=== PATIENT | female | born 2005 | race Caucasian/White ===

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

== ENCOUNTER → 2023-08-13 09:22 | Outpatient (CLI) | payer MEDICAID, SELFPAY ==
[2023-08-13 11:45] LABS: HCG,Quantitative 73991 mIU/ml (0-5.42)
== END ==
PROVIDERS: PCP Nurse Practitioner Family; Visit Provider Obstetrics & Gynecology
DX: N92.6 Irregular menstruation, unspecified (principal)
CPT/HCPCS: 36415; 84144; 84702

== ENCOUNTER → 2023-08-21 16:58 | Outpatient (CLI) | payer MEDICAID, SELFPAY ==
[2023-08-26 08:40] LABS: Neisseria gonorrhoeae, NAA Negative (Negative)
== END ==
PROVIDERS: PCP Nurse Practitioner Family; Visit Provider Obstetrics & Gynecology
DX: Z34.91 Encounter for supervision of normal pregnancy, unspecified, first trimester (principal); Z3A.10 10 weeks gestation of pregnancy
CPT/HCPCS: 87491; 87591

== ENCOUNTER → 2023-08-24 11:11 | Outpatient (CLI) | payer MEDICAID, SELFPAY ==
[2023-08-24 11:33] LABS: Basophils % 0.2 % (0.1-2.0); Eosinophils # 0.1 K/mm3 (0.0-0.4); Eosinophils % 0.9 % (0.1-12.0); Hematocrit 35.7 % (37.0-47.0); Hemoglobin 11.9 g/dL (12.2-16.2); Lymphocytes # 1.4 K/mm3 (0.7-4.5); Mean Corpuscular HGB Conc 33.2 g/dL (31.8-35.4); Mean Corpuscular Hemoglobin 26.1 pg (27.0-31.2); Mean Corpuscular Volume 78.6 fl (81-99); Mean Platelet Volume 8.4 fl (7.4-10.4); Monocytes # 0.3 K/mm3 (0.1-1.0); Monocytes % 4.5 % (1.7-9.3); Neutrophils # 5.7 K/mm3 (1.8-7.8); Neutrophils % 75.4 % (37.0-80.0); Platelet Count 298 K/mm3 (142-424); Red Blood Count 4.54 M/mm3 (4.20-5.40); White Blood Count 7.6 K/mm3 (4.5-13.0)
[2023-08-25 13:45] LABS: Rubella Antibodies, IgG 0.95 index (Immune >0.99)
[2023-08-28 10:00] LABS: HIV Screen 4th Generation wRfx Non Reactive; Hepatitis B Surface Antigen Negative; Hepatitis C Antibody Non Reactive; Rapid Plasma Reagin Ab Titer Non Reactive
== END ==
PROVIDERS: PCP Nurse Practitioner Family; Visit Provider Obstetrics & Gynecology
DX: Z34.91 Encounter for supervision of normal pregnancy, unspecified, first trimester (principal); Z3A.10 10 weeks gestation of pregnancy
CPT/HCPCS: 36415; 85025; 86593; 86703; 86762; 86850; 87340; 87380; G0432

== ENCOUNTER → 2023-09-19 23:30 | Outpatient (CLI) | payer MEDICAID, SELFPAY | LOC: LAB.DROPOF 23:30 | PROVIDERS: PCP Nurse Practitioner Family; Visit Provider Obstetrics & Gynecology | DX: Z34.92 Encounter for supervision of normal pregnancy, unspecified, second trimester (principal); Z3A.15 15 weeks gestation of pregnancy; B96.1 Klebsiella pneumoniae [K. pneumoniae] as the cause of diseases classified elsewhere | CPT/HCPCS: 87086 ==

== ENCOUNTER 2023-10-24 09:39 | Outpatient (CLI) | payer MEDICAID, SELFPAY ==
--- NOTE | 2023-10-24 09:40 | US_ITS ---
PROCEDURE: US OB /MATERNAL DETAIL CLINICAL INDICATION: 20 wk+ Anatomy Scan US OB Complete COMPARISON: No exams were available for comparison FINDINGS: Transabdominal sonographic images of the pelvis were obtained. From her established due date she is 20 weeks 0 days. Single viable intrauterine gestation. Cephalic position. Placenta: Anteriorplacenta grade 1. There is an average amount of fluid. The cervix appears satisfactory. Closed and measuring 4.0 cm in length. Complete survey performed and was unremarkable on the submitted images as in PACS. No discrete anomalies identified on survey imaging by technologist. Active fetus. Three-vessel cord with satisfactory umbilical cord insertion. 4- chamber heart noted. Situs, aortic arch, LVOT, three-vessel view appear normal. Survey of brain & ventricles Unremarkable. Cerebellum, thalamus, choroid plexus, cisterna magna appear normal. Face and neck survey unremarkable. Profile, nasion, lips and nose appeared normal. Diaphragm and chest views unremarkable. Abdomen: Both kidneys noted and unremarkable. Stomach and bladder noted and satisfactory. Spine: Survey of the spine satisfactory with no anomalies identified nor imaged. Cervical, thoracic, lower spine appear normal. Both arms and legs noted. Amniotic Fluid: Adequate. Measurements: Average ultrasound age 19weeks 5days. Estimated due date by ultrasound age 0603/14/2024. Estimated weight 308g BPD = 19weeks 3days HC = 19weeks 6days AC = 19weeks 3days FL = 20weeks 1day Growth Percentile= 29 Heart Rate = 142bpm Cerebellum = 19weeks 1day Humerus = 20weeks 1day HC/AC is 1.24 FL/BPD is 0.73 FL/AC is 0.23 IMPRESSION: 1. Viable fetus in the cephalic presentation with an anterior placenta grade 1. 2. The fluid is within normal limits. 3. Anatomical scan appears normal. 4. biometry is consistent with the dates. Dictated by: Gilberto Luque MD 10/24/2023 13:03 Gilberto Luque MD in OV 10/24/2023 13:03
== END 2023-10-24 23:59 ==
LOC: RAD 09:40
PROVIDERS: PCP Nurse Practitioner Family; Visit Provider Obstetrics & Gynecology
DX: Z36.3 Encounter for antenatal screening for malformations (principal); Z3A.20 20 weeks gestation of pregnancy
CPT/HCPCS: 76811

== ENCOUNTER 2023-12-05 08:04 | Outpatient (CLI) | payer MEDICAID, SELFPAY ==
[2023-12-05 08:30] LABS: Basophils # 0.1 K/mm3 (0-0.2); Basophils % 0.8 % (0.1-2.0); Eosinophils # 0.1 K/mm3 (0.0-0.4); Eosinophils % 0.8 % (0.1-12.0); Hematocrit 31.5 % (37.0-47.0); Hemoglobin 10.2 g/dL (12.2-16.2); Lymphocytes # 1.9 K/mm3 (0.7-4.5); Mean Corpuscular HGB Conc 32.4 g/dL (31.8-35.4); Mean Corpuscular Hemoglobin 25.9 pg (27.0-31.2); Mean Corpuscular Volume 80.2 fl (81-99); Mean Platelet Volume 8.4 fl (7.4-10.4); Monocytes # 0.4 K/mm3 (0.1-1.0); Monocytes % 5.4 % (1.7-9.3); Neutrophils # 4.7 K/mm3 (1.8-7.8); Platelet Count 292 K/mm3 (142-424); Red Blood Count 3.93 M/mm3 (4.20-5.40); Red Cell Distribution Width 14.9 % (11.5-17.5); White Blood Count 7.1 K/mm3 (4.5-13.0)
[2023-12-05 08:53] LABS: Glucose,Fasting 87 mg/dl (74-100)
[2023-12-05 09:53] LABS: Glucose 1 Hour 110 mg/dL (74-100)
== END 2023-12-05 23:59 ==
LOC: LAB 08:04
PROVIDERS: Visit Provider Obstetrics & Gynecology
DX: O26.892 Other specified pregnancy related conditions, second trimester (principal); Z3A.26 26 weeks gestation of pregnancy
CPT/HCPCS: 36415; 82951; 85025

== ENCOUNTER 2024-01-16 14:05 | Outpatient (CLI) | payer MEDICAID, SELFPAY ==
--- NOTE | 2024-01-16 14:11 | US_ITS ---
PROCEDURE: US OB FOLLOW UP CLINICAL INDICATION: growth/ sga COMPARISON: No exams were available for comparison FINDINGS: Transabdominal sonographic images of the uterus were obtained. From her established due date she is 32weeks 0 days. The following parameters are obtained: Viable Fetus in the cephalic presentation with and anterior placenta grade 2. Average ultrasound age is 32weeks 1day Estimated weight 1,897g, 4 lb 3 oz. The cervix measures 2.7 cm in length. Measurements: heart Rate = 144bpm BPD = 31weeks 5days, 32 percentile HC = 32weeks 3days, 22 percentile AC = 32weeks 2days, 56 percentile FL = 31weeks 6days, 32 percentile HC/AC is 1.04 FL/BPD is 0.78 FL/AC is 0.22 41 percentile Amniotic fluid index: 9.73cm, MVP 3.13 cm. Doppler evaluation of the umbilical artery: SD ratio: 3.29-3.44 Resistive index: 0.7 No obvious anomalies evident.Kidneys, profile, stomach, bladder, four-chamber heart, three-vessel cord appear normal. IMPRESSION: 1. Viable fetus in the cephalic presentation with an anterior placenta grade 2. 2. The fluid is within normal limits with an amniotic fluid index of 9.73 cm, MVP 3.13 cm. 3. There has been good interval growth with the fetus currently 41st percentile. 4. SD ratio is normal at 3.2 9-3.44. 5. Limited anatomical scan appears normal. Dictated by: Gilberto Luque MD 01/16/2024 16:29 Gilberto Luque MD in OV 01/16/2024 16:29
== END 2024-01-16 23:59 | disposition home or self-care (01) ==
LOC: RAD 14:06
PROVIDERS: PCP Nurse Practitioner Family; Visit Provider Obstetrics & Gynecology
DX: O26.893 Other specified pregnancy related conditions, third trimester (principal); O36.5990 Maternal care for other known or suspected poor fetal growth, unspecified trimester, not applicable or unspecified; O28.8 Other abnormal findings on antenatal screening of mother; Z3A.32 32 weeks gestation of pregnancy
CPT/HCPCS: 76816; 76820

== ENCOUNTER 2024-02-12 18:00 | Outpatient (CLI) | payer MEDICAID, SELFPAY | END 2024-02-12 23:59 | disposition home or self-care (01) | LOC: LAB.DROPOF 02-13 09:21 | PROVIDERS: PCP Obstetrics & Gynecology; Visit Provider Obstetrics & Gynecology | DX: O26.893 Other specified pregnancy related conditions, third trimester (principal); Z3A.35 35 weeks gestation of pregnancy; B95.1 Streptococcus, group B, as the cause of diseases classified elsewhere | CPT/HCPCS: 86403; 87186 ==

== ENCOUNTER 2024-03-05 19:44 | Inpatient (IN) | payer MEDICAID, SELFPAY ==
[2024-03-05 20:46] VITALS: BMI 25.2
[2024-03-05 21:12] VITALS: BP 126/80; PULSE 90; RESP 18; TEMP 36.8; O2SAT 99; BMI 25.4
[2024-03-05 21:17] LABS: Microscopic, Urine URINE MICROSCOPIC (MICROSCOPIC)
[2024-03-05 21:17] LABS: Basophils # 0.1 K/mm3 (0-0.2); Basophils % 0.6 % (0.1-2.0); Eosinophils % 0.4 % (0.1-12.0); Hematocrit 27.6 % (37.0-47.0); Hemoglobin 8.6 g/dL (12.2-16.2); Lymphocytes # 1.7 K/mm3 (0.7-4.5); Lymphocytes % 19.7 % (10-50); Mean Corpuscular HGB Conc 31.2 g/dL (31.8-35.4); Mean Corpuscular Hemoglobin 20.8 pg (27.0-31.2); Mean Corpuscular Volume 66.7 fl (81-99); Mean Platelet Volume 9.9 fl (7.4-10.4); Monocytes # 0.4 K/mm3 (0.1-1.0); Monocytes % 4.6 % (1.7-9.3); Neutrophils # 6.5 K/mm3 (1.8-7.8); Neutrophils % 74.7 % (37.0-80.0); Platelet Count 310 K/mm3 (142-424); Red Blood Count 4.14 M/mm3 (4.20-5.40); Red Cell Distribution Width 18.2 % (11.5-17.5); White Blood Count 8.7 K/mm3 (4.5-13.0)
[2024-03-05 21:36] LABS: Appearance,Urine CLEAR (Clear); Bilirubin,Urine Negative (Negative); Blood, Urine Negative (Negative); Color,Urine YELLOW (Yellow); Glucose,Urine (UA) Negative (Negative); Ketones,Urine Negative (Negative); Leukocyte Esterase,Urine TRACE (Negative); Nitrate,Urine Negative (Negative); PH,Urine 6.5 (5.0-8.5); Protein,Urine Negative (Negative)
[2024-03-05 21:49] LABS: Benzodiazepines Screen,Urine Negative ng/ml (<200)
[2024-03-05 21:50] LABS: Amphetamine/Metha Screen,Urine Negative ng/ml (<1000); Barbiturates Screen,Urine Negative ng/ml (<200)
[2024-03-05 21:51] LABS: Cannabinoid Screen,Urine Negative ng/ml (<50)
[2024-03-05 21:52] LABS: Bacteria,Urine Trace /lpf; Cocaine Screen,Urine Negative ng/ml (<300); Methadone Screen,Urine Negative ng/ml (<300); WBC,Urine Occasional #/hpf (0-3)
[2024-03-05 21:53] LABS: Opiate Screen,Urine Negative ng/ml (<300)
[2024-03-05 21:54] LABS: Phencyclidine Screen,Urine Negative ng/ml (<25)
[2024-03-05] MEDS: miSOPROStol 100MCG TABLET 50 MCG PO (22:15)
[2024-03-06] MEDS: DEXTROSE 5%-LACTATED RINGERS 1,000 ML 125 ML IV ×2 (04:32→06:00)
[2024-03-06] MEDS: LACTATED RINGERS 1000ML 1,000 ML 250 ML IV ×2 (04:32→09:30)
[2024-03-06] MEDS: OXYTOCIN/RINGERS LACTATE 30 UNITS/500 ML BAG IV ×2 (04:32→10:00)
[2024-03-06] MEDS: VANCOMYCIN HCL 1,000 MG in 0.9 % SODIUM CHLORIDE 250 ML 125 MG IV (04:56)
[2024-03-06 07:39] VITALS: BP 125/94; PULSE 93; RESP 18; TEMP 36.9; O2SAT 98
[2024-03-06 08:13] LABS: Chloride 109 mmol/L (98-107); Sodium 138 mmol/L (136-145)
[2024-03-06 08:14] LABS: Potassium 3.6 mmoL/L (3.5-5.1)
[2024-03-06 08:16] LABS: Blood Urea Nitrogen 5 mg/dl (7-17); Creatinine Clearance Estimated 148 mL/min (50-200); Estimated Glomerular Filt Rate 127 ml/min (>60); GFR (African American) 154 ML/MIN (>60)
[2024-03-06 08:17] LABS: Anion Gap 10.6 mEq/L (5-15); Calcium 8.8 mg/dl (8.4-10.2); Carbon Dioxide 22 mmol/L (22.0-30.0); Glucose 92 mg/dl (74-100)
--- NOTE | 2024-03-06 08:25 | P.HP_ITS ---
OB - H&P: HPI Antepartum History of Present Illness Chief complaint: Scheduled induction of labor History of present illness: Ms Yi Plasencia is a 18 yo at 39w1d who present to [facility] L&D for scheduled elective induction of labor. She has had good care. History of HSV genital. She has been taking Valtrex prophylacticly since 36 weeks. Baby is very active. GBS positive. History of Present Criteria for establishing EDC:: based on 1st trimester US only care: good care Ultrasounds: normal mid trimester US Obstetrical complications: none Medical complications: none Labs Blood type: A (+) positive Rubella: nonimmune RPR/VDRL: nonreactive GBS status: positive HBsAG: negative PFSH PFS Disclaimer: The information contained in this section may have been updated after the patient was seen, as this information can be updated by other users. Medical History (Updated 03/06/24 @ 09:40 by Trisha Brown DO) Encounter for elective induction of labor 39 weeks gestation of GBS (group B Streptococcus carrier), +RV culture, currently Vaginitis affecting , antepartum Uterine size date discrepancy, antepartum Screening for genetic disease carrier status Rubella non-immune status, antepartum Herpes simplex Surgical History No significant past surgical history Family History Unknown Cancer Breast Other Hypertension Social History (Updated 03/06/24 @ 05:10 by Jade Sy RN) Smoking Status: Former smoker tobacco type: e-cigarettes alcohol intake: never substance use type: denies use current occupational status: unemployed Travel in the last 8 weeks: None household members: family housing: house Review of Systems Review of Systems Review of systems:: pertinent systems reviewed and negative unless documented below Meds Home Medications and Allergies Home Medications Medication Instructions Recorded Confirmed Type ferrous sulfate 325 mg (65 mg 325 mg PO DAILY #30 tabs 12/06/23 03/06/24 Rx iron) tablet vit no.133-ferrous 1 tab PO DAILY 01/30/24 03/06/24 History fumarate 28 mg-folic acid 800 mcg tablet () valacyclovir 500 mg tablet 500 mg PO BID #60 tabs 01/30/24 03/06/24 Rx (Valtrex) New Prescriptions to Start Prescriptions: Allergies Allergy/AdvReac Type Severity Reaction Status Date / Time amoxicillin [From AUGMENTIN] Allergy Unknown Verified 02/28/24 13:38 clavulanic acid Allergy Unknown Verified 02/28/24 13:38 [From AUGMENTIN] diphenhydramine Allergy Unknown Verified 02/28/24 13:38 [From BENADRYL] acetaminophen Allergy Verified 02/28/24 13:38 [From Tylenol-Codeine #3] codeine Allergy Verified 02/28/24 13:38 [From Tylenol-Codeine #3] OB - H&P: Exam Physical Exam Vital signs: Temp Pulse Resp BP Pulse Ox O2 Del Method 98.3 F 90 18 126/80 99 Room Air 03/05/24 21:12 03/05/24 21:12 03/05/24 21:12 03/05/24 21:12 03/05/24 21:12 03/05/24 21:12 Constitutional no acute distress and cooperative Routine HEENT Exam Head: Present normocephalic and atraumatic Eye: Absent conjunctivae pink ENT: Present mucous membranes moist Routine Neck Exam Present full ROM Routine Respiratory Exam Present CTA bilaterally and normal respiratory effort Routine Cardiovascular Exam Present RRR Routine Abdominal Exam Present soft (Gravid); Absent tenderness Routine Rectal Exam Patient deferred: visual exam Routine Exam External: Present normal urethra appearance; Absent erythema, tenderness, lesions or lacerations Routine Extremities Exam Present full ROM; Absent edema or calf tenderness Routine Neurological Exam Present alert, moving all extremities and normal speech Routine Psychiatric Exam Present normal affect and cooperative Detailed Labor and Delivery Exam Dilation (cm): 2 Effacement (%): 75 Cervix position: anterior station: -1 Consistency: soft Membranes: artificially ruptured (amniotomy performed at 0759 with amnihook without difficulty) Amniotic fluid: clear Baseline heart rate: 135 monitor accelerations: Present monitor decelerations: None detention variability: Moderate (11-25) Contraction frequency (min): 3 Tachysystole: No OB - Results Labs Labs: Short CBC 03/05/24 Range/Units 21:01 WBC 8.7 (4.5-13.0) K/mm3 Hgb 8.6 L (12.2-16.2) g/dL Hct 27.6 L (37.0-47.0) % Plt Count 310 (142-424) K/mm3 Urine 03/05/24 Range/Units 20:00 Urine Color Yellow (Yellow) Urine Appearance Clear (Clear) Urine pH 6.5 (5.0-8.5) Ur Specific [place] 1.010 (1.005-1.030) Urine Protein Negative (Negative) Urine Glucose (UA) Negative (Negative) OB - A/P Antepartum (1) 39 weeks gestation of : Status: Acute (2) Encounter for elective induction of labor: Status: Acute (3) GBS (group B Streptococcus carrier), +RV culture, currently : Status: Acute (4) Herpes simplex: Status: Acute Additional Plan Planning to breastfeed?: Yes Plan: induction Additional Information:: Admit to [facility] L&D for elective induction of labor. Induction of labor with Cytotec followed by Pitocin GBS positive, + penicillin allergy. No sensitivies resulted. Will proceed with vancomycin for GBS prophylaxis Close monitoring Anticipate
--- NOTE | 2024-03-06 09:03 | EXP.PHA.CONS ---
Pharmacy Consult Date: 03/06/24 Time: 09:03 Referring provider: DR. BROWN Reason for Consult:: VANCOMYCIN DOSING Allergies Allergy/AdvReac Type Severity Reaction Status Date / Time amoxicillin [From AUGMENTIN] Allergy Unknown Verified 02/28/24 13:38 clavulanic acid Allergy Unknown Verified 02/28/24 13:38 [From AUGMENTIN] diphenhydramine Allergy Unknown Verified 02/28/24 13:38 [From BENADRYL] acetaminophen Allergy Verified 02/28/24 13:38 [From Tylenol-Codeine #3] codeine Allergy Verified 02/28/24 13:38 [From Tylenol-Codeine #3] Home Medications Medication Instructions Recorded Confirmed Type ferrous sulfate 325 mg (65 mg 325 mg PO DAILY #30 tabs 12/06/23 03/06/24 Rx iron) tablet vit no.133-ferrous 1 tab PO DAILY 01/30/24 03/06/24 History fumarate 28 mg-folic acid 800 mcg tablet () valacyclovir 500 mg tablet 500 mg PO BID #60 tabs 01/30/24 03/06/24 Rx (Valtrex) New Prescriptions to Start Prescriptions: Height: 1.57 m Weight: 62.596 kg Laboratory Results:: Laboratory Results - last 24 hr 03/05/24 20:00: Urine Color Yellow, Urine Appearance Clear, Urine pH 6.5, Ur Specific [place] 1.010, Urine Protein Negative, Urine Glucose (UA) Negative, Urine Ketones Negative, Urine Blood Negative, Urine Nitrate Negative, Urine Bilirubin Negative, Urine Urobilinogen 1.0, Ur Leukocyte Esterase Trace, Urine RBC None, Urine WBC Occasional, Ur Squamous Epith Cells 3-5, Urine Bacteria Trace, Urine Opiates Screen Negative, Urine Methadone Screen Negative, Ur Barbituates Screen Negative, Ur Phencyclidine Scrn Negative, Ur Amphetamines Screen Negative, U Benzodiazepines Scrn Negative, Urine Cocaine Screen Negative, U Marijuana (THC) Screen Negative 03/05/24 21:01: WBC 8.7, RBC 4.14 L, Hgb 8.6 L, Hct 27.6 L, MCV 66.7 L, MCH 20.8 L, MCHC 31.2 L, RDW 18.2 H, Plt Count 310, MPV 9.9, Neut % (Auto) 74.7, Lymph % (Auto) 19.7, [place] % (Auto) 4.6, Eos % (Auto) 0.4, Baso % (Auto) 0.6, Neut # (Auto) 6.5, Lymph # (Auto) 1.7, [place] # (Auto) 0.4, Eos # (Auto) 0.0, Baso # (Auto) 0.1, Blood Type A Positive, Antibody Screen Negative 03/06/24 07:54: Sodium 138, Potassium 3.6, Chloride 109 H, Carbon Dioxide 22, Anion Gap 10.6, BUN 5 L, Creatinine 0.60, Estimated Creat Clear 148, Estimated GFR 127, Est GFR ( Amer) 154, Glucose 92, Calcium 8.8 Medical History: Medical History (Updated 02/28/24 @ 14:12 by Trisha Brown DO) GBS (group B Streptococcus carrier), +RV culture, currently Vaginitis affecting , antepartum Uterine size date discrepancy, antepartum Screening for genetic disease carrier status Rubella non-immune status, antepartum Herpes simplex Assessment and Plan Assessment and plan all Dx Assessment and Plan for all problems:: Pharmacokinetic dosing service Objective: Patient: Floor: Age: 18 yo Serum creatinine: 0.60 mg/dL Height: 61.8 Inches Weight (kg): 62.6 Assessment: IBW (kg): 49.64 Dosing wt(kg): 62.6 Estimated Creatinine clearance (ml/min): 117.2 CRCL method: Cockcroft and Gault using ibw(default). Drug selected: Vancomycin Loading dose (mg): Vd (liters): 50.1 (factor used: 0.8 L/kg) Dave (hr-1): 0.102 Half life (hrs): 6.80 CLvanco=?? 5.110 L/hr Recommended dose: 1250 mg Interval: 12 hrs Infusion time (hrs): 2.0 Predicted peak (mcg/mL): 32.0 Predicted trough (mcg/mL): 11.54 Total body weight is being used for vancomycin dosing. Recommendations: Give Vancomycin 1250 mg q 12 hrs with an expected Cpeak of 32.0 mcg/ml and an expected Ctrough of 11.54 mcg/ml AUC 0-24 /MARCY Data: MARCY 0.5 mcg/mL:?? AUC/MARCY:? 978.5 MARCY 1.0 mcg/mL:?? AUC/MARCY:? 489.2 --------- MARCY 1.5 mcg/mL:?? AUC/MARCY:? 326.2 MARCY 2.0 mcg/mL:?? AUC/MARCY:? 244.6 Thank you for the consult, will continue to follow. -GILMAR JAY, NIKOLAID
--- NOTE | 2024-03-06 09:12 | P.PNANES_ITS ---
[facility] Disclaimer: The information contained in this section may have been updated after the patient was seen, as this information can be updated by other users. Medical History GBS (group B Streptococcus carrier), +RV culture, currently Vaginitis affecting , antepartum Uterine size date discrepancy, antepartum Screening for genetic disease carrier status 08/31/23 - [facility] carrier screen negative for 14 conditions tested including CF, Fragile X and SMA Rubella non-immune status, antepartum Herpes simplex Surgical History No significant past surgical history Family History Unknown Cancer Breast Other Hypertension Social History (Updated 03/06/24 @ 05:10 by Jade Sy RN) Smoking Status: Former smoker tobacco type: e-cigarettes alcohol intake: never substance use type: denies use current occupational status: unemployed Travel in the last 8 weeks: None household members: family housing: house [facility] Anesthesia Checklist Patient Identification Patient Identification: Arm Band and Verbal (Name & ) Structural Data Admitted From: Inpatient (OB 277) Planned Operative Procedure/s: Labot epidural Consent for Planned Operative Procedure(s) Verified: Yes Verified Documents: Surgical Consent and History and Physical NPO Status Verified Time NPO: 07:30 Chart Verification Results Verified: CBC and BMP Additional verifications Patient : Yes (39 1/7 wk IUP) Anesthesia Reactions: No Cardiovascular Assessment Heart Sounds: S1 & S2 Pulse Rhythm: Irregular Peripheral Edema: No Airway Assessment Mallampati Score:: Class II C-Spine Mobility Assessed: Yes (FROM) TMJ Mobility Assessed: Yes Dentition: Good Dentition (Nothing loose per pt.) Neurological Assessment Level of Consciousness: Awake, Alert, Appropriate and Follows Commands Hx Seizures: No Numbness or tingling in extremities: No Anesthesia Plan Anesthesia Risk discussed: Yes Anesthesia Plan: Verified ASA Class: II Anesthesia Type: Epidural
--- NOTE | 2024-03-06 09:13 | P.PCN_ITS ---
[facility] Procedure Note Date: 03/06/24 Time: 08:45 Procedure Note:: Procedure Note Labor Epidural Position: Sitting Prep: Betadine x3 Site: L3-4 Local to Skin: Lido 1% x 3mL ROSE to air: 5.5cm Heme: NEGATIVE; CSF: NEGATIVE; Parasthesia: NEGATIVE Catheter secured @ skin: 15cm Test dose: NEGATIVE w/ 5mL Lido 1.5% w/epi 1:200,000 Bolus: Ropivicaine 0.2% x10mL + Fentanyl 50mcg [employer]: 12 mL/hr w/Ropivicaine 0.2% w/Fentanyl 2mcg/mL Tolerated well.
[2024-03-06] MEDS: hydrOXYzine pamoate 25MG CAPSULE 25 MG PO (11:03)
[2024-03-06] MEDS: OXYTOCIN/RINGERS LACTATE 30 UNITS/500 ML BAG 40 UNITS IV (13:30)
--- NOTE | 2024-03-06 13:32 | PC.NURSE ---
admissions aware of delivery of baby girl.
--- NOTE | 2024-03-06 14:11 | P.PCN_ITS ---
Delivery Note Delivery Date:: 03/06/24 Delivery Time:: 13:26 Anesthesia Type: Epidural Was labor medically induced?: No Induction method: per misoprostol protocol Gestational age (weeks): 39 delivered prior to 39 weeks?: No Gender: Female at 1 minute: 9 at 5 minutes: 9 Delivery Procedure:: Mom complete with epidural. Pushed for approximately 26 minutes. Head delivered spontaneously over intact perineum in MANAV position. No nuchal cord. Anterior shoulder delivered with gentle downward pressure. Posterior shoulder and remainder of body delivered spontaneously. Baby placed on maternal abdomen, mouth and nares bulb suctioned, warmed/dried and stimulated. Delayed cord c lamping was performed for 60 seconds. Cord was clamped and cut by father of baby. Cord blood was obtained. Placenta delivered spontaneously and intact. Second degree perineal laceration repaired with 3-0 Vicryl. Hemostasis noted. Mom and baby were skin to skin and doing well after delivery. Live female baby (baby's name is Leyda) APGARs 9 (1 min), 9 (5 min) EBL 200 mL Placental Delivery Description: Spontaneous
[2024-03-06] MEDS: IBUPROFEN 400 MG TABLET 800 MG PO (17:16)
[2024-03-06] MEDS: WITCH HAZEL 40 PADS/BOX 1 EACH TP (17:16)
[2024-03-06] MEDS: ACETAMINOPHEN 500MG TAB 1000 MG PO (17:16)
[2024-03-06] MEDS: PRENATAL MULTIVITAMIN W/IRON 1 EACH PO (17:17)
[2024-03-06] MEDS: SENNA 8.6MG TABLET 8.59999999999999964 MG PO (17:17)
[2024-03-06] MEDS: BENZOCAINE-MENTHOL SPRAY 56GM CAN TP (17:18)
[2024-03-06 18:27] VITALS: TEMP 37.2
[2024-03-06 20:03] VITALS: BP 127/79; PULSE 99; RESP 20; TEMP 36.9; O2SAT 100
[2024-03-07 05:00] VITALS: BP 115/62; PULSE 78; RESP 16; TEMP 37; O2SAT 100
[2024-03-07] MEDS: SENNA 8.6MG TABLET 8.59999999999999964 MG PO (05:28)
[2024-03-07] MEDS: ACETAMINOPHEN 500MG TAB 1000 MG PO ×3 (05:28→22:20)
[2024-03-07] MEDS: IBUPROFEN 400 MG TABLET 800 MG PO ×3 (05:28→22:20)
[2024-03-07] MEDS: WITCH HAZEL 40 PADS/BOX 1 EACH TP ×2 (05:33→12:47)
[2024-03-07 06:19] LABS: Basophils # 0.1 K/mm3 (0-0.2); Basophils % 0.6 % (0.1-2.0); Eosinophils % 0.3 % (0.1-12.0); Hematocrit 25.3 % (37.0-47.0); Hemoglobin 7.5 g/dL (12.2-16.2); Lymphocytes # 2.4 K/mm3 (0.7-4.5); Lymphocytes % 20.7 % (10-50); Mean Corpuscular HGB Conc 29.8 g/dL (31.8-35.4); Mean Corpuscular Hemoglobin 20.6 pg (27.0-31.2); Mean Corpuscular Volume 69.3 fl (81-99); Mean Platelet Volume 10.9 fl (7.4-10.4); Monocytes # 0.5 K/mm3 (0.1-1.0); Monocytes % 4.5 % (1.7-9.3); Neutrophils # 8.4 K/mm3 (1.8-7.8); Neutrophils % 73.9 % (37.0-80.0); Platelet Count 221 K/mm3 (142-424); Red Blood Count 3.66 M/mm3 (4.20-5.40); Red Cell Distribution Width 18.3 % (11.5-17.5); White Blood Count 11.4 K/mm3 (4.5-13.0)
--- NOTE | 2024-03-07 08:20 | EXP.ACUTE.PN ---
Subjective *Date: 03/07/24 *Time: 08:20 Interval history: PPD # 1 s/p Feeling well this morning. She was able to sleep last night. Pain controlled with medication. Lochia appropriate. Formula feeding. Tolerating regular diet. Voiding without difficulty and passing flatus. Denies fever/chills, chest pain and shortness of breath. No headaches, vision changes, lightheadedness/dizziness. Ambulating well ad jose. Medical Exam Vital signs and Labs for Last 24 Hours: Vital Signs Temp Pulse Resp BP Pulse Ox O2 Del Method 03/07/24 05:00 98.6 F 78 16 115/62 100 Room Air 03/06/24 20:03 98.5 F 99 H 20 127/79 100 Room Air 03/06/24 18:27 98.9 F Laboratory Results - last 24 hr 03/05/24 21:01: Blood Type A Positive, Antibody Screen Negative, Crossmatch (AHG) See Detail 03/06/24 07:54: Sodium 138, Potassium 3.6, Chloride 109 H, Carbon Dioxide 22, Anion Gap 10.6, BUN 5 L, Creatinine 0.60, Estimated Creat Clear 148, Estimated GFR 127, Est GFR ( Amer) 154, Glucose 92, Calcium 8.8 03/07/24 05:57: WBC 11.4 D, RBC 3.66 L, Hgb 7.5 L, Hct 25.3 L, MCV 69.3 L, MCH 20.6 L, MCHC 29.8 L, RDW 18.3 H, Plt Count 221 D, MPV 10.9 H, Neut % (Auto) 73.9, Lymph % (Auto) 20.7, Barnwell % (Auto) 4.5, Eos % (Auto) 0.3, Baso % (Auto) 0.6, Neut # (Auto) 8.4 H, Lymph # (Auto) 2.4, Barnwell # (Auto) 0.5, Eos # (Auto) 0.0, Baso # (Auto) 0.1 I & O for Labs for Last 24 Hours: Intake & Output 03/04/24 03/05/24 03/06/24 03/07/24 23:59 23:59 23:59 23:59 Weight 138 lb 0.009 oz 138 lb 0.009 oz Head: Present atraumatic and normocephalic ENT: Present normal exam Neck: Present normal inspection and full ROM Respiratory: Present CTA bilaterally and normal respiratory effort Cardiac: Present Reg Rate and Rhythm GI: Present soft; Absent distention or tenderness Comments:: Uterine fundus firm and below umbilicus Rectal (female): Present deferred (female): Present deferred Extremities: Present full ROM; Absent edema or calf tenderness Neuro: Present alert, awake and moves all extremities Assessment and Plan *Assessment and plan (1) Status post normal vaginal delivery: Status: Acute Category: Medical (2) Encounter for elective induction of labor: Status: Acute Category: Medical Code(s): Z34.90 - Encounter for supervision of normal , unspecified, unspecified trimester (3) 39 weeks gestation of : Status: Acute Category: Medical Code(s): Z3A.39 - 39 weeks gestation of (4) GBS (group B Streptococcus carrier), +RV culture, currently : Status: Acute Category: Medical Code(s): O99.820 - Streptococcus B carrier state complicating (5) Rubella non-immune status, antepartum: Status: Acute Category: Medical Code(s): O09.899 - Supervision of other high risk pregnancies, unspecified trimester; Z28.39 - Other underimmunization status (6) Herpes simplex: Status: Acute Category: Medical Code(s): B00.9 - Herpesviral infection, unspecified (7) Acute blood loss anemia: Status: Acute Category: Medical Code(s): D62 - Acute posthemorrhagic anemia Plan Continue routine care Encouraged increased ambulation MMR before discharge Venofer 200 mg IV x 1 dose Plan d/c home PPD # 2
[2024-03-07] MEDS: IRON SUCROSE COMPLEX 200 MG in 0.9 % SODIUM CHLORIDE 100 ML 220 MG IV (08:24)
[2024-03-07] MEDS: PRENATAL MULTIVITAMIN W/IRON 1 EACH PO (17:21)
[2024-03-07 17:25] VITALS: BP 147/74; PULSE 83; RESP 18; TEMP 36.7; O2SAT 98
[2024-03-08] MEDS: WITCH HAZEL 40 PADS/BOX 1 EACH TP (01:07)
[2024-03-08] MEDS: ACETAMINOPHEN 500MG TAB 1000 MG PO (08:25)
[2024-03-08] MEDS: IBUPROFEN 400 MG TABLET 800 MG PO (08:26)
[2024-03-08 08:35] VITALS: BP 131/71; PULSE 104; RESP 18; O2SAT 100
--- NOTE | 2024-03-08 11:16 | EXP.DC.SUM ---
General Admission date:: 03/05/24 Discharge date: 03/08/24 HPI HPI HPI: Chief complaint: Scheduled induction of labor History of present illness: Ms Yi Plasencia is a 18 yo at 39w1d who present to [facility] L&D for scheduled elective induction of labor. She has had good care. History of HSV genital. She has been taking Valtrex prophylacticly since 36 weeks. Baby is very active. GBS positive. History of Present Criteria for establishing EDC:: based on 1st trimester US only care: good care Ultrasounds: normal mid trimester US Obstetrical complications: none Medical complications: none Labs Blood type: A (+) positive Rubella: nonimmune RPR/VDRL: nonreactive GBS status: positive HBsAG: negative Hospital Course Hospital Course Hospital Course: Yi Plasencia is a pleasant 18-year-old G2, P1 PPD#2 from an [facility]. She presented to labor and delivery for an elective induction of labor with misoprostol. She delivered a live viable female infant weighing 3710 g, 20 inches long, Apgars were 9 and 9. She has both breast and bottlefeeding. Her EBL at delivery was 200 mL. She was GBS positive. She was rubella nonimmune. This morning on discharge the patient is doing well and reports that her lochia is scant and her pain is well-controlled. She is tolerating regular diet, voiding without difficulty or dysuria, and passing flatus. She denies any fevers or chills, chest pain or shortness of breath. No headaches, vision changes, lightheadedness/dizziness. Ambulating well ad jose. patient will be discharged home today and follow-up with Dr. Brown in 1 to 2 weeks. Routine discharge instructions reviewed with patient in detail and she voiced understanding. We discussed baby blues and depression at length Exam Data for Last 24 hours Vital signs and Labs for Last 24 Hours: Temp Pulse Resp BP Pulse Ox O2 Del Method 98.1 F 104 H 18 131/71 100 Room Air 03/07/24 17:25 03/08/24 08:35 03/08/24 08:35 03/08/24 08:35 03/08/24 08:35 03/08/24 08:35 I & O for Last 24 hours: Intake & Output 03/05/24 03/06/24 03/07/24 06/08/24 23:59 23:59 23:59 23:59 Weight 138 lb 0.009 oz 138 lb 0.009 oz Narrative: Head: Present atraumatic and normocephalic ENT: Present normal exam Neck: Present normal inspection and full ROM Respiratory: Present CTA bilaterally and normal respiratory effort Cardiac: Present Reg Rate and Rhythm GI: Present soft; Absent distention or tenderness Comments:: Uterine fundus firm and below umbilicus Constitutional Constitutional: no acute distress *Routine HEENT Exam Head: Present normocephalic Eye: Present EOMI and PERRL ENT: Present mucous membranes moist *Routine Neck Exam Neck: Present supple; Absent lymphadenopathy *Routine Respiratory Exam Respiratory: Present CTA bilaterally *Routine Cardiovascular Exam Cardiovascular: Present RRR *Routine Abdominal Exam Abdominal: Present soft and normoactive bowel sounds; Absent tenderness *Routine Extremities Exam Extremities: Absent cyanosis, clubbing or edema *Routine Skin Exam Skin: Present warm; Absent rash *Routine Neurological Exam Neurological: Present alert and oriented X3 DS: Diagnosis Discharge Diagnosis (1) Status post normal vaginal delivery: Status: Acute Problem details: Stable. PPD2 s/p -Doing well. VSS. Serial lochia and fundal checks. -A+/antibody negative -Breast and bottle feeding, female infant -Follow-up 2 weeks for routine visit and incision check #Anemia -Hemoglobin: 8.6--> 7.5 -Status post 1 dose of IV Venofer yesterday - asymptomatic anemia noted. Vitals stable. Continue monitoring. DC with Fe -EBL: 200mL -Continue PO at discharge home, discussed with pt #Rubella non-immune -Powder Loader and vaccinate prior to discharge -Dispo: home today with short interval follow-up with Dr. Brown (2) Encounter for elective induction of labor: Status: Acute Code(s): Z34.90 - Encounter for supervision of normal , unspecified, unspecified trimester (3) 39 weeks gestation of : Status: Acute Code(s): Z3A.39 - 39 weeks gestation of (4) GBS (group B Streptococcus carrier), +RV culture, currently : Status: Acute Code(s): O99.820 - Streptococcus B carrier state complicating (5) Rubella non-immune status, antepartum: Status: Acute Code(s): O09.899 - Supervision of other high risk pregnancies, unspecified trimester; Z28.39 - Other underimmunization status (6) Herpes simplex: Status: Acute Code(s): B00.9 - Herpesviral infection, unspecified (7) Acute blood loss anemia: Status: Acute Code(s): D62 - Acute posthemorrhagic anemia Meds Home Medications and Allergies Home Medications Medication Instructions Recorded Confirmed Type vit no.133-ferrous 1 tab PO DAILY 01/30/24 03/06/24 History fumarate 28 mg-folic acid 800 mcg tablet () valacyclovir 500 mg tablet 500 mg PO BID #60 tabs 01/30/24 03/06/24 Rx (Valtrex) ferrous sulfate 325 mg (65 mg 325 mg PO DAILY #30 tabs 03/08/24 Rx iron) tablet ibuprofen 800 mg tablet 800 mg PO Q8H PRN pain #60 tabs 03/08/24 Rx sennosides 8.6 mg tablet (Senna 8.6 mg PO BIDP PRN Constipation 03/08/24 Rx Lax) #60 tabs New Prescriptions to Start Prescriptions: ferrous sulfate Jade Rebolledo ibuprofen Jade Rebolledo sennosides [Senna Lax] Jade Rebolledo Allergies Allergy/AdvReac Type Severity Reaction Status Date / Time amoxicillin [From AUGMENTIN] Allergy Unknown Verified 02/28/24 13:38 clavulanic acid Allergy Unknown Verified 02/28/24 13:38 [From AUGMENTIN] diphenhydramine Allergy Unknown Verified 02/28/24 13:38 [From BENADRYL] codeine Allergy Verified 02/28/24 13:38 [From Tylenol-Codeine #3] Discharge Plan Disposition Patient Disposition: Home, Self-Care Discharge Order Discharge Orders: Discharge Order (Routine); Ordered 03/08/24 Ordered By: Jade Rebolledo Follow up Plan Follow up with: Trisha Brown DO [Staff Physician] - 2 weeks (Call Sunday for follow up appointment for you) Prescriptions/Medication Reconciliation: New sennosides [Senna Lax] 8.6 mg Tablet 8.6 mg PO BIDP PRN (Reason: Constipation) Qty: 60 2RF ibuprofen 800 mg tablet 800 mg PO Q8H PRN (Reason: pain) Qty: 60 2RF Continued 28-800 mg-mcg tablet 1 tab PO DAILY valacyclovir [Valtrex] 500 mg tablet 500 mg PO BID Qty: 60 1RF ferrous sulfate 325 mg (65 mg iron) tablet 325 mg PO DAILY Qty: 30 11RF Problem Reconciliation Problems Reviewed?: Yes Patient Discharge Instructions ACTIVITY: Continue current activity DIET: regular diet Additional Instructions: Congratulations on the delivery of your sweet baby girl. It is my privilege to be part of your [employer] team. Discharge: -Take 800 mg Ibuprofen every 8 hours as needed for pain. You can also take 500-1000 mg of Tylenol in between doses, every 6-8 hours. -Colace can be taken 1-2 times per day as you need to soften your stool. Make sure to drink at least 8 cups of water per day. -Iron supplements can make you constipated. You can take iron tablets every other day if constipation is too bad. -Nothing in the vagina for 6 weeks - no sex, douching, tampons. No tub baths -Do not lift greater than 15 pounds for 6 weeks, this is the equivalent of 2 gallons of milk. -Reasons to return to L&D or call On-Call doctor - fever (greater than 100.4) - heavy vaginal bleeding (soaking through 1 pad in less than 2 hours or passing clots that are egg sized) - vaginal discharge (malodorous and/or purulent) - severe headaches, leg tenderness/edema, or any other symptoms that warrant immediate medical attention. depression/blues - Normal to feel anxious/overwhelmed for first 2 weeks - Talk to your doctor if: anxiety lasts over 2 weeks, trouble bonding with baby, withdrawing from other family members, thoughts of harming yourself or others Blood pressure and preeclampsia instructions 1. Please take your blood pressure twice daily. 2. Please call if greater than 2 values are higher than: 150 systolic (the top number) or 100 diastolic (the bottom number). 3. Please go to the emergency room or labor and delivery triage if any value is higher than: 160 systolic (the top number) or 110 diastolic (the bottom number). 4. Please call if unrelenting headache (does not go away with rest or Tylenol or ibuprofen), changes in vision (spots, floaters, flashes of light), chest pain, shortness of breath, or right upper quadrant (liver) abdominal pain. Jade Rebolledo DO [facility] [phone] *Nothing in the Vagina for 6 weeks* *No strenuous activity* *No heavy lifting* *No tub baths until okay's by MD* Patient Instructions: Depression, Hemorrhage, DI for Labor and Delivery, Vaginal , DI for Pre-eclampsia, H Post Discharge Instructions Providers Primary Care Provider: Bailey Boo Admit Provider: Trisha Brown Attending Provider: Trisha Brown
[2024-03-08] MEDS: MEASLES,MUMPS,RUBELLA VACCINE VIAL 0.5 ML SQ (11:57)
== END 2024-03-08 12:01 | disposition home or self-care (01) | DRG 806 ==
PROVIDERS: Admitting Provider Obstetrics & Gynecology; PCP Nurse Practitioner Family; Visit Provider Obstetrics & Gynecology
DX: O98.52 Other viral diseases complicating childbirth (principal); D62 Acute posthemorrhagic anemia; Z37.0 Single live birth; B00.9 Herpesviral infection, unspecified; Z3A.39 39 weeks gestation of pregnancy; O99.820 Streptococcus B carrier state complicating pregnancy; O90.81 Anemia of the puerperium
CPT/HCPCS: 59409; 36415; 59025; 80048; 80307; 81001; 85025; 86850; 90707; 94761; G0283; J1756; J3370; J7120

== ENCOUNTER 2024-10-27 05:28 | Emergency (ER) | payer MEDICAID, SELFPAY ==
[2024-10-27 05:29] VITALS: BP 130/81; PULSE 132; RESP 16; TEMP 36.9; O2SAT 98; BMI 20.1
[2024-10-27 05:48] LABS: Adenovirus,PCR Not Detected (NotDetected); Bordetella Pertussis Not Detected (NotDetected); Chlamydophila Pneumoniae, PCR Not Detected (NotDetected); Coronavirus 19, PCR Not Detected (NotDetected); Coronavirus 229E Not Detected (NotDetected); Coronavirus NL63 Not Detected (NotDetected); Coronavirus OC43 Not Detected (NotDetected); Coronovirus HKU1,PCR Not Detected (NotDetected); Human Metapneumovirus Not Detected (NotDetected); Influenza A, PCR Not Detected (NotDetected); Influenza AH1, 2009 Not Detected (NotDetected); Influenza AH1, PCR Not Detected (NotDetected); Influenza B, PCR Not Detected (NotDetected); Mycoplasma Pneumoniae, PCR Not Detected (NotDetected); Parainfluenza 1, PCR Not Detected (NotDetected); Parainfluenza 2, PCR Not Detected (NotDetected); Parainfluenza 3, PCR Not Detected (NotDetected); Parainfluenza 4, PCR Not Detected (NotDetected); Respiratory Syncytial Virus Not Detected (NotDetected); Rhinovirus/Enterovirus Not Detected (NotDetected)
[2024-10-27 06:08] VITALS: PULSE 96; RESP 20
--- NOTE | 2024-10-27 06:17 | ED_ITS ---
Discharge Plan Disposition Patient Disposition: Home, Self-Care Condition: Good Prescriptions Prescriptions: New guaifenesin 600 mg tablet extended release 12hr 600 mg PO BID PRN (Reason: cough) Qty: 10 0RF No Action 28-800 mg-mcg tablet 1 tab PO DAILY valacyclovir [Valtrex] 500 mg tablet 500 mg PO BID Qty: 60 1RF sennosides [Senna Lax] 8.6 mg Tablet 8.6 mg PO BIDP PRN (Reason: Constipation) Qty: 60 2RF ibuprofen 800 mg tablet 800 mg PO Q8H PRN (Reason: pain) Qty: 60 2RF ferrous sulfate 325 mg (65 mg iron) tablet 325 mg PO DAILY Qty: 30 11RF Referrals Follow up/Referrals: Bailey Boo APRN [Primary Care Provider] - See instructions Activity Restrictions/Add. Instructions Additional Instructions/Restrictions: You were evaluated in the ER and are appropriate for discharge at this time. If you develop fever, take Tylenol or ibuprofen, do not exceed the recommended dose on the bottle. Drink water and eat a small snack each time you take these me dications to avoid side effects. Drink plenty of water. You can also drink Gatorade or Pedialyte to maintain good hydration. Take the prescribed guaifenesin if needed for cough. Make an appointment with your primary care doctor for reevaluation in a few days. Return to the ER with new, worsening, or otherwise concerning symptoms. Clinical Impressions Clinical Impression: Upper respiratory infection, Cough, Nasal congestion Print Language Print Language: Korean Discharge ED Provider: Herbert Rushing General Adult HPI General Chief complaint: Upper Respiratory Infection Stated complaint: cough, runny nose, congestion Time Seen by Provider: 10/27/24 05:31 Mode of Arrival: Ambulatory Source of Information: Patient Limitations: No Limitations Description of Symptoms (Recalled from ER Triage Doc. by RN): pt reports she has had a cough and a runny nose for a few days. pt denies any fevers History of Present Illness HPI narrative: 18-year-old female with no chronic medical conditions presents to the ER with concerns of cough and runny nose for the past few days. She denies any fevers, vomiting, diarrhea, abdominal pain, headache, dizziness, numbness, tingling, or weakness. She is not having chest pain or difficulty breathing. No dysuria or hematuria. She reports since she was getting her daughter checked for similar symptoms she decided to check in as well. She has not had bodyaches or fevers but is worried she could potentially have flu. No other associated symptoms or concerns at this time. She has not taken any medications prior to arrival. Related Data Home Medications ?Medication ?Instructions ?Recorded ?Confirmed vit no.133-ferrous 1 tab PO DAILY 01/30/24 03/06/24 fumarate 28 mg-folic acid 800 mcg tablet () Previous Rx's ?Medication ?Instructions ?Recorded valacyclovir 500 mg tablet 500 mg PO BID #60 tabs 01/30/24 (Valtrex) ferrous sulfate 325 mg (65 mg 325 mg PO DAILY #30 tabs 03/08/24 iron) tablet ibuprofen 800 mg tablet 800 mg PO Q8H PRN pain #60 tabs 03/08/24 sennosides 8.6 mg tablet (Senna 8.6 mg PO BIDP PRN Constipation 03/08/24 Lax) #60 tabs guaifenesin 600 mg tablet, 600 mg PO BID PRN cough #10 tabs 10/27/24 extended release 12 hr Allergies Allergy/AdvReac Type Severity Reaction Status Date / Time amoxicillin (From AUGMENTIN) Allergy Unknown Verified 02/28/24 13:38 clavulanic acid (From Allergy Unknown Verified 02/28/24 13:38 AUGMENTIN) diphenhydramine (From Allergy Unknown Verified 02/28/24 13:38 BENADRYL) codeine (From Allergy Verified 02/28/24 13:38 Tylenol-Codeine #3) [facility] Disclaimer: The information contained in this section may have been updated after the patient was seen, as this information can be updated by other users. Medical History (Updated 10/27/24 @ 05:45 by Herbert Rushing MD) Acute blood loss anemia Status post normal vaginal delivery Encounter for elective induction of labor 39 weeks gestation of GBS (group B Streptococcus carrier), +RV culture, currently Vaginitis affecting , antepartum Uterine size date discrepancy, antepartum Screening for genetic disease carrier status Rubella non-immune status, antepartum Herpes simplex Surgical History No significant past surgical history Family History Unknown Cancer Breast Other Hypertension Social History Smoking Status: Never smoker alcohol intake: never substance use type: denies use current occupational status: unemployed Travel in the last 8 weeks: None household members: family housing: house Have you lived/traveled outside [place] in past 30 days?: No Contact w/someone who lives/traveled outside [place] past 30 days?: No Exposure to someone with infectious disease in past 14 days?: No Do you have a fever (greater than 100.4 F or 38 C)?: No Have you tested positive for COVID-19: No Exposed to someone with COVID-19 in past 14 days?: No Do you have a sore throat?: No Do you have a cough?: Yes Do you have any weakness?: No Do you have any diarrhea?: No Are you experiencing any unusual bleeding?: No Do you have any muscle aches/pain?: No Do you have any abdominal pain?: No Are you experiencing loss of taste or smell?: No Other Medical History Have you received the Flu Vaccine for this season: No Have you received the Pneumonia Vaccine: No ROS Obtained: Yes Systems reviewed as appropriate & no additional complaints except as documented Per HPI Physical Exam General General appearance: alert and in no apparent distress Head Head exam: atraumatic and normocephalic Eye Eye exam: Present PERRL and EOMI ENT ENT exam: Present mucous membranes moist Neck Neck exam: Present normal inspection and full ROM Chest Chest inspection: Present symmetric chest wall rise Respiratory Respiratory exam: Present normal lung sounds bilaterally; Absent respiratory distress, wheezes or stridor Cardiovascular Cardiovascular exam: Present normal rhythm and tachycardia (Patient initially tachycardic on arrival but she was anxious about her daughter and standing, bouncing her daughter on her hip) Abdominal Exam Abdominal exam: Present soft; Absent distention or tenderness Extremities Exam Extremities exam: Present full ROM Neurological Exam Neurological exam: Present alert and oriented X3; Absent motor sensory deficit Psychiatric Psychiatric exam: Present normal affect and normal mood Skin Skin exam: Present warm and dry Medical Decision Making Medical Records Medical records reviewed: Yes I reviewed the patient's medical records. Screening: Per USPSTF and CDC recommendations, given the prevalence of disease in our region, it is our hospital?s policy to screen for HIV and viral Hepatitis for all patients aged 18 and over and those with ongoing risk factors. MR Comment: Patient was GBS positive during her delivery per my review of OB records. She had a spontaneous vaginal delivery after elective induction with misoprostol. History of HSV on viral suppression at the time of delivery. Johnny Inquiry Pt receiving controlled substance: No Vital Signs: 10/27/24 05:29 10/27/24 06:08 10/27/24 06:20 Temperature 98.4 F 98.4 F Temperature Source Oral Pulse Rate 96 H 96 H Pulse Rate [Right] 132 H Respiratory Rate 16 20 16 Blood Pressure 130/81 Blood Pressure [Right Arm] 130/81 Blood Pressure Mean [Right Arm] 97 02 Sat by Pulse Oximetry 98 Oxygen Delivery Method Room Air Room Air Lab Data Lab Results 10/27/24 05:45: Chlamy pneumoniae PCR Not detected, Adenovirus (PCR) Not detected, B. pertussis DNA (PCR) Not detected, Coronavirus OC43 (PCR) Not detected, Coronavirus HKU1 (PCR) Not detected, Coronavirus 229E (PCR) Not detected, SARS-CoV-2 (PCR) Not detected, Coronavirus NL63 (PCR) Not detected, Human Metapneumovir PCR Not detected, Influenza A (H1) PCR Not detected, Influ A (H1N1/09) PCR Not detected, Influenza A (H3) PCR Detected A, Influenza Type A (PCR) Not detected, Influenza Type B (PCR) Not detected, M. pneumoniae (PCR) Not detected, Parainfluenza 1 (PCR) Not detected, Parainfluenza 2 (PCR) Not detected, Parainfluenza 3 (PCR) Not detected, Parainfluenza 4 (PCR) Not detected, RSV (PCR) Not detected, Entero/Rhino (PCR) Not detected Orders (Tests/Meds): ORDERS Category Date Time Status Full Resp Panel w/COVID ([facility]) Routine Lab 10/27/24 05:45 Completed Medical Decision Narrative: In summary, this 18-year-old female presents to the emergency department today with cough, congestion. On initial evaluation patient is tachycardic but otherwise hemodynamically stable, afebrile, lungs clear bilaterally, overall well-appearing, she does have mild nasal congestion. Patient was tachycardic during my exam but she had just walked into the ER, was bouncing her baby on her hip, and was anxious about the baby being sick. No initial intervention. Differential diagnosis includes but is not limited to viral syndrome, I conside red pneumonia but have no evidence of this clinically with patient being afebrile and having normal pulmonary exam as well as no shortness of breath or chest pain. I discussed viral testing with her. She is outside the window for Tamiflu but she would like to have viral testing performed anyways to see if she potentially has flu. I believe this is reasonable. Viral swab was collected. Patient sat and relaxed with baby after initial evaluation, her tachycardia spontaneously improved. She is well-appearing and appropriate for discharge. Patient was given instructions on symptomatic management, follow up instructions, and return precautions for the emergency department. Patient indicated understanding and was discharged in stable condition. Review of labs after patient was discharged demonstrates viral panel was positive for influenza A (H3). She is outside the window for Tamiflu treatment. No changes in management indicated at this time. Critical Care Critical Care Time Critical Care Time: No
[2024-10-27 06:20] VITALS: BP 130/81; PULSE 96; RESP 16; TEMP 36.9; O2SAT 98
[2024-10-27 07:50] LABS: Influenza AH3,PCR Detected (NotDetected)
--- NOTE | 2024-10-28 09:34 | PC.NURSE ---
Pt called for results of respiratory panel.
== END 2024-10-27 06:21 | disposition home or self-care (01) ==
PROVIDERS: Emergency Provider Emergency Medicine; PCP Nurse Practitioner Family
DX: J06.9 Acute upper respiratory infection, unspecified (principal); R05.9 Cough, unspecified; R09.81 Nasal congestion; R09.89 Other specified symptoms and signs involving the circulatory and respiratory systems
CPT/HCPCS: 87633; 99283